=== PATIENT | male | born 1960 | race Caucasian/White ===

== ENCOUNTER → 2017-11-12 | Outpatient (CLI) | payer OTHER ==
--- NOTE | 2017-11-12 11:18 | 2DMMODE ---
[place] [address] 2 D/M-MODE ECHOCARDIOGRAM Name: SWEETIE BOURNE Room: [facility]#: [id number] Admission: 11/12/17 Attend Phys: Sheeba Wang Discharge: Date of : 64 Date of Service: 11/12/17 1117 Report #: [id number] THIS REPORT FOR: //name// APPROVED REPORT Study performed: 11/12/2017 09:47:05 EXAM: Comprehensive 2D, Doppler, and color-flow Echocardiogram Patient Location: Out-Patient Status: routine BSA: 2.21 HR: 64 bpm Other Information Study Quality: Good Indications Abnormal ECG 2D Dimensions LVEF(%): 59.85 (>50%) IVSd: 11.32 (7-11mm) LVOT Diam: 20.81 (18-24mm) LVDd: 47.48 mm PWd: 10.69 (7-11mm) Ascending Ao: 31.69 (22-36mm) LVDs: 32.36 (25-40mm) Aortic Root: 28.45 mm Ellsworth's LVEF: 59.85 % Volumes Left Atrial Volume (Systole) LA ESV Index: 19.00 mL/m2 Aortic Valve AoV Peak Rad.: 1.45 m/s AO Peak Gr.: 8.46 mmHg LVOT Max P.45 mmHg AO Mean Gr.: 4.69 mmHg LVOT Mean P.43 mmHg LVOT Max V: 0.93 m/s AO V2 VTI: 28.31 cm LVOT Mean V: 0.53 m/s ORQUIDEA (VTI): 2.15 cm2 LVOT V1 VTI: 17.90 cm Mitral Valve E/A Ratio: 0.91 MV Decel. Time: 273.[place] [address] 2 D/M-MODE ECHOCARDIOGRAM Name: SWEETIE BOURNE Room: [facility]#: [id number] Admission: 11/12/17 Attend Phys: Sheeba Wang Discharge: Date of : 64 Date of Service: 11/12/17 1117 Report #: [id number] MV E Max Rad.: 0.69 m/s MV PHT: 79.31 ms MVA (PHT): 2.77 cm2 TDI E/Lateral E': 6.27 E/Medial E': 6.90 Medial E' Rad.: 0.10 m/s Lateral E' Rad.: 0.11 m/s Pulmonary Valve PV Peak Rad.: 1.34 m/s PV Peak Gr.: 7.23 mmHg Tricuspid Valve TR Peak Gr.: 21.12 mmHg RVSP: 26.12 mmHg Left Ventricle The left ventricle is normal size. There is normal LV segmental wall motion. There is normal left ventricular wall thickness. Left ventricular systolic function is normal. The left ventricular ejection fraction is within the normal range. LVEF is 55-60%. Grade I - abnormal relaxation pattern. Right Ventricle The right ventricle is normal size. The right ventricular systolic function is normal. Atria The left atrium size is normal. The right atrium size is normal. Aortic Valve The aortic valve is normal in structure. No aortic regurgitation is present. There is no aortic valvular stenosis. Mitral Valve The mitral valve is normal in structure. There is no mitral valve regurgitation noted. No evidence of mitral valve stenosis. Tricuspid Valve The tricuspid valve is normal in structure. Mild tricuspid regurgitation. The RVSP is _26.1 mmHg. Pulmonic Valve The pulmonary valve is normal in structure. Trace [place] [address] 2 D/M-MODE ECHOCARDIOGRAM Name: SWEETIE BOURNE Evgeny Room: [facility]#: [id number] Admission: 11/12/17 Attend Phys: Sheeba Wnag Discharge: Date of : 64 Date of Service: 11/12/17 1117 Report #: [id number] Great Vessels The aortic root is normal in size. IVC is normal in size and collapses with >50% inspiration Pericardium There is no pericardial effusion. <Conclusion> The left ventricle is normal size. There is normal left ventricular wall thickness. Left ventricular systolic function is normal. The left ventricular ejection fraction is within the normal range. LVEF is 55-60%. Grade I - abnormal relaxation pattern. The right ventricle is normal size. The left atrium size is normal. The aortic valve is normal in structure. The mitral valve is normal in structure. The tricuspid valve is normal in structure. Mild tricuspid regurgitation. The RVSP is _26.1 mmHg. IVC is normal in size and collapses with >50% inspiration There is no pericardial effusion. There is normal LV segmental wall motion. <ELECTRONICALLY SIGNED> By: Jaylen Solis MD, FACC 11/12/17 1117 16 16 Jaylen Solis MD, FACC /INF
== END ==
LOC: M.CT 10-29 11:33
DX: I25.10 Atherosclerotic heart disease of native coronary artery without angina pectoris (principal); I07.1 Rheumatic tricuspid insufficiency; N20.0 Calculus of kidney; D71 Functional disorders of polymorphonuclear neutrophils